=== PATIENT | male | born 1970 | race Hispanic/Latino ===

== ENCOUNTER 2021-10-22 10:20 | Inpatient (IN) | payer OTHER ==
[2021-10-22] MEDS ORDERED: dilTIAZem HCL 25 MG/5 ML VIAL IV ONE (10:48)
[2021-10-22 10:55] LABS: Absolute Lymphocytes (CBC) 1.7 K/uL (0.7-4.9); Hematocrit 47.3 % (39.6-49.0); Lymphocytes % 32.1 % (15.3-44.8); MPV 7.6 fL (7.6-11.3); RBC Red Blood Cell Count 5.33 M/uL (4.33-5.43)
[2021-10-22 10:58] LABS: Protime INR 0.98
[2021-10-22 11:17] LABS: Bilirubin Direct 0.1 mg/dL (0-0.2); Bilirubin Total 0.5 mg/dL (0.2-1.0); Magnesium 2.1 mg/dL (1.8-2.4); Potassium 3.9 mmol/L (3.5-5.1); Protein, Total 7.5 g/dL (6.4-8.2); Troponin High Sensitivity 4.3 pg/mL (<58.9)
--- NOTE | 2021-10-22 11:21 | RAD REPORT ---
EXAM DESCRIPTION: RAD - Chest Single View - 10/22/2021 11:14 am CLINICAL HISTORY: cardiac Chest pain. COMPARISON: No comparisons FINDINGS: Portable technique limits examination quality. Interstitial opacities are slightly prominent which could indicate mild interstitial pulmonary edema. The heart is normal in size. No displaced fractures.
[2021-10-22] MEDS ORDERED: ENOXAPARIN 100 MG/ML SYR SQ ONE (11:22)
--- NOTE | 2021-10-22 11:46 | ER ---
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 Coronavirus screen: Vaccine status: Patient reports receiving the 2nd dose of the covid vaccine. Ebola Screen: No symptoms or risks identified at this time. Initial Sepsis Screen: Does the patient meet any 2 criteria? No. Patient's initial sepsis screen is negative. Does the patient have a suspected source of infection? No. Patient's initial sepsis screen is negative. Risk Assessment: Do you want to hurt yourself or someone else? Patient reports no desire to harm self or others. Onset of symptoms was October 22, 2021. 10:34 Method Of Arrival: Ambulatory ph 10:34 Acuity: ARLETH 2 ph Historical: - Allergies: 10:36 No Known Allergies; ph - Home Meds: 10:36 None [Active]; ph - Immunization history:: Client reports receiving the 2nd dose of the Covid vaccine. - Social history:: Smoking status: Patient denies any tobacco usage or history of. Screenin:50 Abuse screen: Denies threats or abuse. Denies injuries from another. Nutritional ab2 screening: No deficits noted. Tuberculosis screening: No symptoms or risk factors identified. Fall Risk None identified. Assessment: 10:48 General: Appears in no apparent distress. comfortable, Behavior is calm, cooperative, ab2 appropriate for age. Pain: Denies pain. Pain does not radiate. Pain began Patient denies pain. Neuro: Level of Consciousness is awake, alert, obeys commands, Oriented to person, place, time, situation, Appropriate for age Pulling Machine Operator are equal bilaterally Moves all extremities. Gait is steady, Speech is normal, Facial symmetry appears normal. Cardiovascular: Reports palpitations, Denies chest pain, shortness of breath, Patient's skin is warm and dry. Rhythm is atrial fibrillation with rapid ventricular response Chest pain is denied. Respiratory: No deficits noted. Airway is patent Respiratory effort is even, unlabored, Respiratory pattern is regular, symmetrical. GI: No deficits noted. No signs and/or symptoms were reported involving the gastrointestinal system. Abdomen is round non-distended. : No deficits noted. No signs and/or symptoms were reported regarding the genitourinary system. EENT: No deficits noted. No signs and/or symptoms were reported regarding the EENT system. Derm: No deficits noted. No signs and/or symptoms reported regarding the dermatologic system. Skin is intact, is healthy with good turgor, Skin is pink, warm \\T\\ dry. Musculoskeletal: No deficits noted. No signs and/or symptoms reported regarding the musculoskeletal system. 13:07 Reassessment: Patient appears in no apparent distress at this time. Patient given warm ab2 blankets. at bedside, denies any further needs. Awaiting room assignment for admission. Patient denies pain at this time. Patient states symptoms have improved. 14:58 Reassessment: Patient appears in no apparent distress at this time. No changes from ab2 previously documented assessment. Pt resting comfortably, denies any needs at this time. Vital Signs: 10:34 BP 138 / 95; Pulse 152; Resp 20; Temp 97.9; Pulse Ox 98% on R/A; Weight 95.25 kg; ph Height 5 ft. 7 in. (170.18 cm); 11:00 BP 118 / 80; Pulse 87; Resp 16; Pulse Ox 99% on R/A; ab2 11:52 BP 120 / 73; Pulse 113; Resp 16; Pulse Ox 99% on R/A; ab2 13:04 BP 115 / 83; Pulse 114; Resp 16; Pulse Ox 99% on R/A; Pain 0/10; ab2 14:00 BP 125 / 90; Pulse 112; Resp 16; Pulse Ox 99% ; Pain 0/10; ab2 14:57 BP 132 / 88; Pulse 122; Resp 16; Pulse Ox 100% on R/A; Pain 0/10; ab2 17:43 BP 126 / 82; Pulse 111; Resp 16; Pulse Ox 98% on R/A; ab2 10:34 Body Mass Index 32.89 (95.25 kg, 170.18 cm) ph ED Course: 10:25 Patient arrived in ED. rg4 10:29 Vinod Reyes DO is Attending Physician. ms3 10:36 Triage completed. ph 10:36 Arm band placed on Patient placed in an exam room, on a stretcher, on playground monitor, ph on pulse oximetry. 10:45 Inserted saline lock: 20 gauge in left forearm, using aseptic technique. Blood ab2 collected. 10:47 Basic Metabolic Panel Sent. ab2 10:47 CBC with Diff Sent. ab2 10:48 LFT's Sent. ab2 10:48 Magnesium Sent. ab2 10:48 NT PRO-BNP Sent. ab2 10:48 PT-INR Sent. ab2 10:48 Troponin HS Sent. ab2 10:50 Patient has correct armband on for positive identification. Placed in gown. Bed in low ab2 position. Call light in reach. Side rails up X2. Adult w/ patient. traffic monitor specialist on. Pulse ox on. NIBP on. 10:50 No provider procedures requiring assistance completed. Patient maintains SpO2 ab2 saturation greater than 95% on room air. 11:00 Dayday Chu is Primary Nurse. ab2 11:14 XRAY Chest (1 view) In Process Unspecified. EDMS 11:42 Wan Hutchinson is Hospitalizing Provider. ms3 11:52 COVID-19 SARS RT PCR (Document "Date of Onset" if Symptomatic) Sent. ab2 17:42 Report attempted, per Carolyn there was not a nurse assigned to the patient. ab2 18:15 Patient admitted, IV remains in place. ab2 Administered Medications: 10:47 Drug: Cardizem (diltiazem) 20 mg Route: IVP; Site: left forearm; ab2 11:16 Follow up: Response: No adverse reaction ab2 11:21 Drug: Lovenox (enoxaparin) 1 mg/kg Route: Sub-Q; Site: right upper arm; ab2 11:53 Follow up: Response: No adverse reaction ab2 Outcome: 11:45 Decision to Hospitalize by Provider. ms3 18:15 Admitted to Med/surg accompanied by nurse, via wheelchair, Report called to karime Conley RN 18:15 Condition: stable ab2 18:16 Patient left the ED. ab2 Signatures: Dispatcher [employer] EDAR Pilar Melendez RN RN edgar Payne, Elena rg4 Vinod Reyes DO DO ms3 Bleininger, Dayday ab2
--- NOTE | 2021-10-22 11:46 | EDPHYS ---
Physician Documentation [facility] Name: Rao Kemp Age: 51 yrs Sex: Male : 1970 Arrival Date: 10/22/2021 Time: 10:25 Bed 14 Private MD: ED Physician Vinod Reyes HPI: 10/22 10:45 This 51 yrs old Male presents to ER via Ambulatory with complaints of ms3 Irregular Pulse. 10:45 The patient presents with a history of irregular heart beat. Context: The symptoms ms3 occur at rest. Onset: The symptoms/episode began/occurred acutely, 2 hour(s) ago. Modifying factors: The symptoms are aggravated by nothing. The symptoms are alleviated by nothing. Associated signs and symptoms: The patient has no apparent associated signs or symptoms. 51-year-old male with past medical history of atrial fibrillation 15 years ago that self resolved presents for uncomfortable feeling in his chest. Patient states symptoms began 2 hours prior to arrival. Patient denies pain at this time. Patient denies alleviating or inciting factors. Patient denies nausea, vomiting, shortness of breath, chest pain.. Historical: - Allergies: 10:36 No Known Allergies; ph - Home Meds: 10:36 None [Active]; ph - Immunization history:: Client reports receiving the 2nd dose of the Covid vaccine. - Social history:: Smoking status: Patient denies any tobacco usage or history of. ROS: 10:46 Constitutional: Negative for fever, and chills. Eyes: Negative for injury, pain, ms3 redness, and discharge, ENT: Negative for injury, pain, and discharge, Neck: Negative for injury, pain, and swelling, Cardiovascular: Negative for chest pain, and palpitations. Respiratory: Negative for shortness of breath, cough, wheezing, and pleuritic chest pain, Abdomen/GI: Negative for abdominal pain, nausea, vomiting, diarrhea, and constipation, MS/Extremity: Negative for injury and deformity, Skin: Negative for injury, rash, and discoloration, Neuro: Negative for headache, weakness, numbness, tingling. Psych: Negative for depression, anxiety, suicide ideation, homicidal ideation, and hallucinations. Exam: 10:46 Constitutional: This is a well developed, well nourished patient who is awake, alert, ms3 and in no acute distress. Head/Face: Normocephalic, atraumatic. Eyes: Pupils equal round and reactive to light, extra-ocular motions intact. Lids and lashes normal. Conjunctiva and sclera are non-icteric and not injected. Periorbital areas with no swelling, redness, or edema. Neck: Trachea midline, no cervical lymphadenopathy. Supple, full range of motion without nuchal rigidity, or vertebral point tenderness. No Meningismus. Chest/axilla: Normal chest wall appearance and motion. Nontender with no deformity. Respiratory: Lungs have equal breath sounds bilaterally, clear to auscultation and percussion. No rales, rhonchi or wheezes noted. No increased work of breathing, no retractions or nasal flaring. Abdomen/GI: Soft, non-tender, with normal bowel sounds. No distension or tympany. No guarding or rebound. No evidence of tenderness throughout. Skin: Warm, dry with normal turgor. Normal color with no rashes, no lesions, and no evidence of cellulitis. MS/ Extremity: Pulses equal, no cyanosis. Neurovascular intact. Full, normal range of motion. 10:46 Cardiovascular: Rate: tachycardic, Rhythm: irregular, Heart sounds: normal. 11:59 ECG was reviewed by the Attending Physician. ms3 Vital Signs: 10:34 BP 138 / 95; Pulse 152; Resp 20; Temp 97.9; Pulse Ox 98% on R/A; Weight 95.25 kg; ph Height 5 ft. 7 in. (170.18 cm); 11:00 BP 118 / 80; Pulse 87; Resp 16; Pulse Ox 99% on R/A; ab2 11:52 BP 120 / 73; Pulse 113; Resp 16; Pulse Ox 99% on R/A; ab2 13:04 BP 115 / 83; Pulse 114; Resp 16; Pulse Ox 99% on R/A; Pain 0/10; ab2 14:00 BP 125 / 90; Pulse 112; Resp 16; Pulse Ox 99% ; Pain 0/10; ab2 14:57 BP 132 / 88; Pulse 122; Resp 16; Pulse Ox 100% on R/A; Pain 0/10; ab2 17:43 BP 126 / 82; Pulse 111; Resp 16; Pulse Ox 98% on R/A; ab2 10:34 Body Mass Index 32.89 (95.25 kg, 170.18 cm) ph MDM: 10:29 Patient medically screened. ms3 10:48 Differential diagnosis: arrythmia, dehydration, acs. Data reviewed: vital signs, nurses ms3 notes. Data interpreted: bus monitor: rate is 155 beats/min, rhythm is irregularly irregular, with Interpretation: irregular, tachycardia. 10:50 Counseling: I had a detailed discussion with the patient and/or guardian regarding: the ms3 historical points, exam findings, and any diagnostic results supporting the discharge/admit diagnosis. 11:15 Medication response: Cardizem- Hr 90's after administration. ED course: Patient Hr ms3 improved at this time. Awaiting CXR and labs. Lovenox 1 mg/kg ordered.. 11:45 Data reviewed: lab test result(s), EKG, radiologic studies. Test interpretation: by ED ms3 physician or midlevel provider: ECG. Counseling: I had a detailed discussion with the patient and/or guardian regarding: lab results, radiology results, the need for further work-up and treatment in the hospital. ED course: Discussed case with Dr Hutchinson and he accepts patient as inpatient admission for a fib with RVR. 10/22 10:43 Order name: Basic Metabolic Panel; Complete Time: 10/22 10:43 Order name: CBC with Diff; Complete Time: 10/22 10:43 Order name: LFT's; Complete Time: 10/22 10:43 Order name: Magnesium; Complete Time: :10/22 10:43 Order name: NT PRO-BNP; Complete Time: :10/22 10:43 Order name: PT-INR; Complete Time: 11:10/22 10:29 Order name: EKG; Complete Time: 10:29 ms3 10/22 10:43 Order name: Troponin HS; Complete Time: :10/22 10:43 Order name: XRAY Chest (1 view); Complete Time: :10/22 10:43 Order name: Cardiac monitoring; Complete Time: 10:43 10/22 10:43 Order name: IV Saline Lock; Complete Time: 10:10/22 11:47 Order name: COVID-19 SARS RT PCR (Document "Date of Onset" if Symptomatic); Complete ab2 Time: 12:57 10/22 10:43 Order name: Labs collected and sent; Complete Time: 10:47 g10/22 10:43 Order name: O2 Per Protocol; Complete Time: 10:48 jg10/22 10:43 Order name: O2 Sat Monitoring; Complete Time: 10:43 EC:40 Rate is 145 beats/min. Rhythm is irregular. QRS interval is normal. Clinical ms3 impression: Atrial Fibrillation. Interpreted by me. Administered Medications: 10:47 Drug: Cardizem (diltiazem) 20 mg Route: IVP; Site: left forearm; ab2 11:16 Follow up: Response: No adverse reaction ab2 11:21 Drug: Lovenox (enoxaparin) 1 mg/kg Route: Sub-Q; Site: right upper arm; ab2 11:53 Follow up: Response: No adverse reaction ab2 Disposition: 11:47 Co-signature as Attending Physician, Vinod Reyes DO. ms3 Disposition Summary: 10/22/21 11:45 Hospitalization Ordered Hospitalization Status: Inpatient Admission ms3 Provider: Wan Hutchinson ms3 Condition: Stable ms3 Problem: new ms3 Symptoms: have improved ms3 Bed/Room Type: Standard ms3 Location: Telemetry/MedSurg (Inpatient)(10/22/21 17:35) Room Assignment: [facility](10/22/21 17:35) Diagnosis - Atrial Fibrillation with RVR ms3 Forms: - Medication Reconciliation Form ms3 - SBAR form ms3 Critical care time excluding procedures: 11:47 Critical care time: Bedside Care: 30 minutes, Consultation: 10 minutes. Total time: 40 ms3 minutes Signatures: Dispatcher [employer] Maryan Mark RN RN dw Smirch, Shelby, RN RN ss Hall, Patricia, RN RN ph Sims, Marcus, DO DO ms3 Jordyn Woods RN RN jg9 Dayday Chu ab2 Corrections: (The following items were deleted from the chart) 17:22 11:45 Telemetry/MedSurg (Inpatient) ms3 ss 17:22 11:45 ms3 ss 17:35 17:22 [facility] [[email or web address]] ER HOLD ss dw :35 : ERHOLD- ss dw
--- NOTE | 2021-10-22 12:46 | P.HP ---
Certification for Inpatient Patient admitted to: Inpatient With expected LOS: >2 Midnights Practitioner: I am a practitioner with admitting privileges, knowledge of patient current condition, hospital course, and medical plan of care. Services: Services provided to patient in accordance with Admission requirements found in Title 42 Section 412.3 of the Code of Federal Regulations Patient History Date of Service: 10/22/21 Reason for admission: Palpitation History of Present Illness: 51-year-old gentleman with a remote history of atrial fibrillation presented to the emergency department with a complaint of palpitation. Patient reports feeling palpitation and heart pounding after waking up this morning. He presented to the ED for evaluation. EKG done in the ED demonstrated rapid atrial fibrillation with heart rate of 145. He was given a bolus of IV Cardizem 20 mg and subcutaneous Lovenox. Heart rate improved and was ranging from 90s to 110. Chest x-ray is unremarkable. Patient hospitalized for further management. - Past Medical/Surgical History -: Remote history of A. fib - Family History Father -: Other (see notes) (Atrial fibrillation) Mother -: Other (see notes) (Atrial fibrillation) Brother -: Other (see notes) (Atrial fibrillation) - Social History Smoking Status: Never smoker Alcohol use: Yes Place of Residence: Home Review of Systems Other: Except as documented, all other systems reviewed and negative. Physical Examination - Physical Exam General: Alert, In no apparent distress, Oriented x3 HEENT: PERRLA, Mucous membr. moist/pink Neck: Supple, JVD not distended, No Thyromegaly Respiratory: Clear to auscultation bilaterally, Normal air movement Cardiovascular: No edema, No murmurs, Irregular heart rate/rhythm Capillary refill: <2 Seconds Gastrointestinal: Normal bowel sounds, Soft and benign, Non-distended, No tenderness Musculoskeletal: No swelling, No tenderness Integumentary: No rashes, No erythema, No cyanosis Neurological: Normal speech, Normal strength at 5/5 x4 extr, Cranial nerves 3-12 intact Lymphatics: No axilla or inguinal lymphadenopathy - Studies Laboratory Data (last 24 hrs) 10/22/21 10:45: PT 11.3, INR 0.98 10/22/21 10:45: WBC 5.10, Hgb 16.0, Hct 47.3, Plt Count 242 10/22/21 10:45: Sodium 139, Potassium 3.9, BUN 15, Creatinine 0.91, Glucose 143 H, Magnesium 2.1, Total Bilirubin 0.5, AST 26, ALT 54, Alkaline Phosphatase 103 Assessment and Plan - Problems (Diagnosis) (1) Rapid atrial fibrillation Current Visit: Yes Status: Acute - Plan Admit to the medical floor. Start oral metoprolol 25 mg twice daily Full dose Lovenox Trend troponin Obtain echocardiogram Optimize electrolytes-keep potassium level greater than 4 and magnesium greater than 2. Cardiology consult. - Advance Directives Does patient have a Living Will: No Does patient have a Durable POA for Healthcare: No
[2021-10-22 15:34] VITALS: BMI 32.8
[2021-10-22] MEDS ORDERED: ACETAMINOPHEN 500 MG TAB PO PRN (15:35)
[2021-10-22] MEDS ORDERED: ONDANSETRON 4 MG/2 ML VIAL IV PRN (15:35)
[2021-10-22] MEDS ORDERED: METOPROLOL TAR 25 MG TAB ONE (15:55)
[2021-10-22] MEDS ORDERED: ENOXAPARIN 100 MG/ML SYR SQ SCH (16:00)
[2021-10-22] MEDS ORDERED: INFLUENZA VACCINE (for 6+ mo) 0.5 ML DOSE IMVAC ONE (16:00)
[2021-10-22] MEDS ORDERED: METOPROLOL TAR 25 MG TAB PO SCH (18:00)
[2021-10-22] MEDS: NA CHLORIDE 0.9% 1,000 ML IV SCH (20:25)
[2021-10-22] MEDS: ENOXAPARIN 100 MG/ML SYR SQ SCH (20:26)
[2021-10-22 22:16] LABS: Urine Appearance CLEAR (Clear); Urine Bilirubin NEGATIVE (Negative); Urine Blood NEGATIVE (Negative); Urine Color YELLOW (Yellow); Urine Glucose NEGATIVE (Negative); Urine Protein NEGATIVE (Negative); Urine pH 7.5 (5.0-7.0)
[2021-10-22 22:23] LABS: Urine Microscopic Reflex NO UMIC
[2021-10-23 04:37] LABS: Absolute Lymphocytes (CBC) 2.5 K/uL (0.7-4.9); Hematocrit 43.9 % (39.6-49.0); Lymphocytes % 39.3 % (15.3-44.8); MPV 7.3 fL (7.6-11.3); RBC Red Blood Cell Count 5.08 M/uL (4.33-5.43)
[2021-10-23] MEDS: NA CHLORIDE 0.9% 1,000 ML IV SCH ×2 (04:55→20:14)
[2021-10-23] MEDS: SOTALOL HCL 80 MG TAB PO SCH ×2 (05:17→18:00)
[2021-10-23 05:38] LABS: BUN Blood Urea Nitrogen 16 mg/dL (7-18); Bicarbonate 25 mmol/L (21-32); Glucose Level 107 mg/dL (74-106); Magnesium 2.2 mg/dL (1.8-2.4); Phosphorus 3.4 mg/dL (2.5-4.9); Potassium 3.8 mmol/L (3.5-5.1); Sodium Level 139 mmol/L (136-145)
[2021-10-23] MEDS ORDERED: POTASSIUM CL SA 10 MEQ TAB PO ONE (09:00)
[2021-10-23] MEDS: ENOXAPARIN 100 MG/ML SYR SQ SCH ×2 (10:10→20:11)
--- NOTE | 2021-10-23 14:09 | P.PN ---
Subjective Date of Service: 10/23/21 Chief Complaint: Palpitation Patient denies any symptoms today. He remain in atrial fibrillation. Physical Examination - Vital Signs Temperature: 97.4 F Blood Pressure: 141/82 Pulse: 94 Respirations: 17 Pulse Ox (%): 98 Assessment And Plan - Current Problems (Diagnosis) (1) Rapid atrial fibrillation Current Visit: Yes Status: Acute - Plan Physical Exam General: Alert, NAD, Oriented x3 HEENT: PERRLA, Mucous membr. moist/pink Neck: Supple, JVD not distended, No Thyromegaly Respiratory: Clear to auscultation bilaterally, Normal air movement Cardiovascular: No edema, No murmurs, Irregular heart rate/rhythm Gastrointestinal: Normal bowel sounds, Soft and benign, Non-distended, No tenderness Musculoskeletal: No swelling, No tenderness Integumentary: No rashes, No erythema, No cyanosis Neurological: Normal speech, Normal strength at 5/5 x4 extr. Plan: Case discussed with cardiology-Dr. Ramires who recommend rhythm control with sotalol. Patient started on sotalol. Metoprolol discontinued Continue full dose Lovenox. I am told by the nurse patient is requesting for electric cardioversion. Echocardiogram requested. Optimize electrolytes-keep potassium level greater than 4 and magnesium greater than 2. Cardiology to follow.
[2021-10-24] MEDS: SOTALOL HCL 80 MG TAB PO SCH ×2 (05:08→18:17)
[2021-10-24 06:46] LABS: Absolute Lymphocytes (CBC) 1.9 K/uL (0.7-4.9); Hematocrit 44.4 % (39.6-49.0); Lymphocytes % 35.5 % (15.3-44.8); MPV 7.5 fL (7.6-11.3); RBC Red Blood Cell Count 5.11 M/uL (4.33-5.43)
[2021-10-24 07:00] LABS: Potassium 3.9 mmol/L (3.5-5.1)
[2021-10-24] MEDS: NA CHLORIDE 0.9% 1,000 ML IV SCH ×2 (08:46→20:37)
[2021-10-24] MEDS: ENOXAPARIN 100 MG/ML SYR SQ SCH (08:48)
--- NOTE | 2021-10-24 08:52 | EKG ---
Test Date: 2021-10-22 Test Time: 10:40:39 Court Magistrate: KELSEA MEASUREMENT RESULTS: Intervals: Rate: 145 UT: QRSD: 86 QT: 300 QTc: 466 [place]: P: UT: QRS: 126 T: -19 INTERPRETIVE STATEMENTS: Atrial fibrillation with rapid ventricular response Left posterior fascicular block T wave abnormality, consider inferior ischemia or digitalis effect Abnormal ECG No previous ECG available for comparison Electronically Signed On 10-24-21 08:47:59 NEWSPAPER OR PERIODICAL EDITOR by Oni Manley
[2021-10-24] MEDS ORDERED: POTASSIUM 25 MEQ EFFERV TAB PO ONE (09:00)
--- NOTE | 2021-10-24 16:44 | P.PN ---
Subjective Date of Service: 10/24/21 Chief Complaint: Palpitation Patient denies any symptoms today. He remain in atrial fibrillation. Heart rates ranging from 60-120. Physical Examination - Vital Signs Temperature: 98.9 F Blood Pressure: 149/86 Pulse: 109 Respirations: 20 Pulse Ox (%): 100 Assessment And Plan - Current Problems (Diagnosis) (1) Rapid atrial fibrillation Current Visit: Yes Status: Acute - Plan Physical Exam General: Alert, NAD, Oriented x3 Neck: Supple, JVD not distended. Respiratory: Clear to auscultation bilaterally, Normal air movement Cardiovascular: No edema, No murmurs, Irregular heart rate/rhythm Gastrointestinal: Normal bowel sounds, Soft and benign, Non-distended, No tend erness Musculoskeletal: No swelling, No tenderness Integumentary: No rashes, No erythema, No cyanosis Neurological: No focal motor deficit. Plan: Case discussed with cardiology-Dr. Ramires who recommend rhythm control with sotalol. Patient started on sotalol. Heart rate fluctuate up to 120 Change full dose Lovenox to Xarelto I am told by the nurse patient is requesting for electric cardioversion for a quick fix so he can be discharged early. Echocardiogram is pending. Optimize electrolytes-keep potassium level greater than 4 and magnesium greater than 2. Cardiology is following.
[2021-10-24] MEDS ORDERED: RIVAROXABAN 20 MG TABLET PO SCH (17:00)
[2021-10-24 18:10] LABS: Magnesium 2.1 mg/dL (1.8-2.4); Phosphorus 3.5 mg/dL (2.5-4.9)
--- NOTE | 2021-10-24 20:32 | CON ---
Date of Consultation: 10/22/2021 Reason For Consultation: Atrial fibrillation. History Of Present Illness: A -nymr-sui male with history of atrial fibrillation, presente d with palpitations. Denies having any chest pain or shortness of breath. In the emergency room, fo und to be in rapid atrial fibrillation, heart rate in the 150s. Given IV bolus of Cardizem and heart rate improved. Evaluated him by bedside and he was asymptomatic. Past Medical History: Paroxysmal atrial fibrillation. Medications: Refer reconciliation sheet for detailed list. Allergies: NO KNOWN DRUG ALLERGIES. Family History: No premature coronary artery disease or cancer. Social History: Does not smoke or drink. Does not use any drugs. Review of Systems: All systems reviewed and they were negative except as mentioned in HPI. Physical Examination: Vital Signs: Reviewed. Head and Neck: Pupils are equal, reactive to light. Intact eye movements. No JVD. No cervical lym phadenopathy. Neck: Supple. Thyroid is not enlarged. Lungs: Clear to auscultation bilaterally. No rhonchi, rales, or crackles. No accessory muscle use. Heart: Irregularly irregular. No extra sounds. Abdomen: Soft, nontender. Bowel sounds positive. No organomegaly. No masses or hernia. No rigidi ty or rebound. Extremities: No edema, clubbing, or cyanosis. Intact pulses. Skin: No rash or nodules. Neurologic: Alert, awake, and oriented x3. No acute focal deficits appreciated. Lymph Nodes: No cervical or axillary lymphadenopathy. Investigations: Labs reviewed. Assessment And Recommendation: Atrial fibrillation with rapid ventricular response. Recommend to st art sotalol 80 mg b.i.d. and obtain EKG after third dose and use metoprolol intravenously 5 mg IV q.1 hour as needed for rate control and please obtain an echocardiogram as well as TSH. Thank you for the consult. /DAGO Voice ID: [id number] Report ID: [id number]
--- NOTE | 2021-10-24 20:38 | PN ---
Subjective: Seen by bedside, doing better on10/23/2021. Heart rate is controlled. Still in atrial fibrillation. Review of Systems: No chest pain, shortness of breath, orthopnea, or cough. No nausea, vomiting, or diarrhea. No abdominal pain. No dysuria, polyuria, or urgency. Other systems reviewed are negative. Physical Examination: Vital Signs: Reviewed. Head and Neck Exam: Pupils are equal and reactive to light. Intact eye movements. No JVD. No cervical lymphadenopathy. Neck: Supple. Thyroid is not enlarged. Lungs: Clear to auscultation bilaterally. No rhonchi, rales, or crackles. No accessory muscle use. Heart: Irregularly irregular. No extra sounds. Abdomen: Soft and nontender. Bowel sounds positive. No organomegaly. No tenderness. Extremities: No edema, clubbing, or cyanosis. Intact pulses. Skin: No rashes. Neurologic: Alert, awake, and oriented x3. No acute focal deficits appreciated. Laboratory Data: Labs were reviewed and they were all normal except TSH was 5.09. Assessment And Recommendations: Atrial fibrillation. Still in atrial fibrillation, however, his rate is controlled. Once he completes the third dose of sotalol, the patient can be released home on sotalol and aspirin 81 mg to follow up with me in the office in about 4 weeks, at which time, if he continues to be in atrial fibrillation, we will plan for electrical cardioversion. /DAGO Voice ID: [id number] Report ID: [id number]
--- NOTE | 2021-10-24 21:56 | PN ---
Date of Progress Note: 10/24/2021 Subjective: Seen by bedside. Continues to be in atrial fibrillation. Rate is between 110 and 130. No symptoms. Review of Systems: No chest pain, shortness of breath, orthopnea, or cough. No nausea, vomiting, or diarrhea. No abdom inal pain. No dysuria, polyuria, or urgency. Other systems reviewed are negative. Physical Examination: Vital Signs: Reviewed. Head and Neck: Pupils are equal, reactive to light. Intact eye movements. No JVD. No cervical lym phadenopathy. Neck: Supple. Thyroid is not enlarged. Lungs: Clear to auscultation bilaterally. No rhonchi, rales, or crackles. No accessory muscle use. Heart: Irregularly irregular. No extra sounds. Abdomen: Soft and nontender. Bowel sounds positive. No organomegaly. No masses or hernia. No rig idity or rebound. Extremities: No edema, clubbing, or cyanosis. Intact pulses. Skin: No rash or nodules. Neurologic: Alert, awake, and oriented x3. No acute focal deficits appreciated. Investigations: Labs were reviewed. Assessment And Recommendation: Atrial fibrillation, still with rapid ventricular response. Increase the sotalol to 120 mg twice a day and monitor QTc interval. By tomorrow morning if the patient's he art rate is controlled and still in atrial fibrillation, then we will plan to switch him to oral Eliq uis and to continue his sotalol and we will plan for outpatient followup. To give the patient overni ght and to assess response to sotalol increase, please obtain an EKG daily while on sotalol. SR/MODL Voice ID: [id number] Report ID: [id number]
[2021-10-24 22:56] VITALS: O2SAT 98
[2021-10-25] MEDS: SOTALOL HCL 80 MG TAB PO SCH (05:24)
--- NOTE | 2021-10-25 06:10 | P.PN ---
Date of Service: 10/25/21
[2021-10-25 06:30] LABS: Absolute Lymphocytes (CBC) 2.3 K/uL (0.7-4.9); Hematocrit 45.1 % (39.6-49.0); Lymphocytes % 41.6 % (15.3-44.8); MPV 7.6 fL (7.6-11.3); RBC Red Blood Cell Count 5.15 M/uL (4.33-5.43)
[2021-10-25 06:42] LABS: BUN Blood Urea Nitrogen 14 mg/dL (7-18); Bicarbonate 25 mmol/L (21-32); Glucose Level 92 mg/dL (74-106); Potassium 3.7 mmol/L (3.5-5.1); Sodium Level 140 mmol/L (136-145)
[2021-10-25] MEDS: NA CHLORIDE 0.9% 1,000 ML IV SCH (08:06)
--- NOTE | 2021-10-25 08:32 | P.DS ---
Admission Date: 10/22/21 Discharge Date: 10/25/21 Disposition: ROUTINE DISCHARGE Discharge Condition: GOOD Reason for Admission: Afib w/ RVR Consultations: Cardiology - Dr. Ramires Procedures: Problem list Atrial fibrillation with RVR Brief History of Present Illness: 51-year-old gentleman with a remote history of atrial fibrillation presented to the emergency department with a complaint of palpitation. Patient reports feeling palpitation and heart pounding after waking up this morning. He presented to the ED for evaluation. EKG done in the ED demonstrated rapid atrial fibrillation with heart rate of 145. He was given a bolus of IV Cardizem 20 mg and subcutaneous Lovenox. Heart rate improved and was ranging from 90s to 110. Chest x-ray is unremarkable. Patient hospitalized for further management. Hospital Course: Patient was found to be in Afib with RVR. He was started on medications and had improvement of his heart rate. Cardiology was consulted. Sotalol dosage was increased for better control. He remained in afib, but heart rate 80-90s with occasional short episodes up to 120 lasting only a few seconds. He was deemed stable for discharge on Sotalol and anticoagulation (either eliquis or xarelto) per Cardiology. Follow up with Cardiology in a few weeks. Vital Signs/Physical Exam: Temp Pulse Resp BP Pulse Ox 97 F 86 18 129/71 95 10/25/21 04:00 10/25/21 04:00 10/25/21 04:00 10/25/21 04:00 10/25/21 04:00 General: Alert, In no apparent distress, Oriented x3 HEENT: Sclerae nonicteric Neck: Supple, No LAD Respiratory: Clear to auscultation bilaterally, Normal air movement Cardiovascular: No edema, Irregular heart rate/rhythm (HR: 80s) Gastrointestinal: Soft and benign, Non-distended, No tenderness Musculoskeletal: No tenderness Integumentary: No rashes Neurological: Normal speech, Normal affect Laboratory Data at Discharge: WBC 5.50 K/uL (4.3-10.9) 10/25/21 05:32 Hgb 15.7 g/dL (13.6-17.9) 10/25/21 05:32 Hct 45.1 % (39.6-49.0) 10/25/21 05:32 Plt Count 227 K/uL (152-406) 10/25/21 05:32 PT 11.3 SECONDS (9.5-12.5) 10/22/21 10:45 INR 0.98 10/22/21 10:45 Sodium 140 mmol/L (136-145) 10/25/21 05:32 Potassium 3.7 mmol/L (3.5-5.1) 10/25/21 05:32 BUN 14 mg/dL (7-18) 10/25/21 05:32 Creatinine 0.87 mg/dL (0.55-1.3) 10/25/21 05:32 Glucose 92 mg/dL (74-106) 10/25/21 05:32 Phosphorus 3.5 mg/dL (2.5-4.9) 10/24/21 17:20 Magnesium 2.1 mg/dL (1.8-2.4) 10/24/21 17:20 Total Bilirubin 0.5 mg/dL (0.2-1.0) 10/22/21 10:45 AST 26 U/L (15-37) 10/22/21 10:45 ALT 54 U/L (12-78) 10/22/21 10:45 Alkaline Phosphatase 103 U/L (45-117) 10/22/21 10:45 Home Medications: Rivaroxaban [Xarelto] 20 mg PO DAILY AT SUPPER 30 Days #30 tablet 10/25/21 Sotalol HCl [Betapace*] 120 mg PO BID 30 Days #60 tab 10/25/21 New Medications: Sotalol HCl [Betapace*] 120 mg PO BID 30 Days #60 tab Rivaroxaban [Xarelto] 20 mg PO DAILY AT SUPPER 30 Days #30 tablet Physician Discharge Instructions: Patient was found to be in Afib with RVR. He was started on medications and had improvement of his heart rate. Cardiology was consulted. Sotalol dosage was increased for better control. He remained in afib, but heart rate 80-90s with occasional short episodes up to 120 lasting only a few seconds. He was deemed stable for discharge on Sotalol and anticoagulation (either eliquis or xarelto) per Cardiology. Follow up with Cardiology in a few weeks. Call [phone] for any questions regarding hospital stay E-script sent to [facility] in [place] Follow up with a [employer] of your choice: HEENA WAKEFIELD, BERTA S [address] [place] [id number] BLANKA WAKEFIELD, JAZ [address] [place] [id number] Diet: Regular Activity: Ad phong Followup: NONE,NONE [Primary Care Provider] - Time spent managing pt's care (in minutes): 45
[2021-10-25 08:50] VITALS: BP 109/61; TEMP 97.8
[2021-10-25] MEDS ORDERED: POTASSIUM CL SA 10 MEQ TAB PO ONE (09:00)
--- NOTE | 2021-10-25 09:09 | EKG ---
Test Date: 2021-10-25 Test Time: 07:22:40 Game Programmer: REGGIE MEASUREMENT RESULTS: Intervals: Rate: 86 HI: QRSD: 86 QT: 364 QTc: 435 [place]: P: HI: QRS: 105 T: 33 INTERPRETIVE STATEMENTS: Atrial fibrillation Rightward axis Abnormal ECG Compared to ECG 10/22/2021 10:40:39 Right-axis deviation now present Left posterior fascicular block no longer present T-wave abnormality no longer present Possible ischemia no longer present Electronically Signed On 10-25-21 09:08:56 OIL REFINERY PROCESS TECHNICIAN by Oni Manley
--- NOTE | 2021-10-25 10:43 | ECHO ---
HEIGHT: 5 ft 7 in WEIGHT: 209 lb 8.8 oz DATE OF STUDY: 10/24/[address]: jacob davila 2-DIMENSIONAL: YES M.MODE: YES DOPPLER: YES COLOR FLOW: YES TDS: NO PORTABLE: NO DEFINITY: NO BUBBLE STUDY: NO DIAGNOSIS: ATRIAL FIBRILLATION WITH RAPID VENTRICULAR RESPONSE CARDIAC HISTORY: CATHERIZATION: NO SURGERY: NO PROSTHETIC VALVE: NO PACEMAKER: NO MEASUREMENTS (cm) DIASTOLIC (NORMALS) SYSTOLIC (NORMALS) IVSd 1.0 (0.6-1.2) LA Diam 3.1 (1.9-4.0) LVEF 55-60% LVIDd 4.5 (3.5-5.7) LVIDs 3.8 (2.0-3.5) %FS % LVPWd 1.1 (0.6-1.2) Ao Diam 2.9 (2.0-3.7) 2 DIMENSIONAL ASSESSMENT: RIGHT ATRIUM: NORMAL LEFT ATRIUM: NORMAL RIGHT VENTRICLE: NORMAL LEFT VENTRICLE: NORMAL TRICUSPID VALVE: NORMAL MITRAL VALVE: NORMAL PULMONIC VALVE: NORMAL AORTIC VALVE: NORMAL PERICARDIAL EFFUSION: NONE AORTIC ROOT: NORMAL LEFT VENTRICULAR WALL MOTION: NORMAL DOPPLER/COLOR FLOW: NORMAL COMMENTS: ATRIAL FIBRILLATION WITH RAPID VENTRICULAR RESPONSE. NORMAL OVERALL LEFT VENTRICULAR SIZE AND FUNCTION. NO EFFUSION. TECHNOLOGIST: Jessie OAKES
== END 2021-10-25 11:15 | disposition home or self-care (01) | DRG 310 ==
LOC: ER 10:20 → OBSVTOIN 12:52 → INTOOBSV 12:52 → ERHOLD 12:52 → 2ND 18:21
PROVIDERS: ADMIT Internal Medicine; ATTEND Internal Medicine
DX: I48.91 Unspecified atrial fibrillation (principal); Z20.822 Contact with and (suspected) exposure to COVID-19
CPT/HCPCS: 36415; 71045; 80048; 80076; 81003; 83735; 83880; 84100; 84439; 84443; 84484; 85025; 85610; 93005; 93306; 96372; 96374; 99285; J1650; J7030; U0003